=== PATIENT | female | born 1985 | race American Indian/Alaskan Native ===

== ENCOUNTER 2017-08-09 11:35 | Emergency (ER) | payer SELFPAY ==
[2017-08-09] MEDS ORDERED: BSS ONE (13:42)
[2017-08-09] MEDS ORDERED: FUL-GLO OP ONE ×2 (13:42→14:05)
[2017-08-09] MEDS ORDERED: TETRACAINE 0.5% ONE ×2 (13:42→13:58)
[2017-08-09] MEDS ORDERED: NACL 0.9% 1000 ML 1,000 ML IV ONE (15:07)
[2017-08-09] MEDS ORDERED: MORPHINE IV ONE (15:07)
[2017-08-09 15:59] VITALS: BP 124/85
--- NOTE | 2017-08-09 18:26 | Emergency Department Report ---
Entered by KETAN LIANG, acting as scribe for ROMA SHEPARD NP. <ANNA CUETO. - Last Filed: 08/09/17 14:26> ED Eye Problem HPI - General Chief complaint: Eye Problems Stated complaint: R EYE PAIN Time Seen by Provider: 08/09/17 13:46 - Related Data Home Medications Medication Instructions Recorded Confirmed Last Taken Hydrochlorothiazide [HCTZ] 12.5 mg PO DAILY 08/09/17 08/09/17 Unknown Venlafaxine HCl 150 mg PO DAILY 08/09/17 08/09/17 Unknown Allergies Allergy/AdvReac Type Severity Reaction Status Date / Time No Known Allergies Allergy Unverified 08/09/17 11:43 ED Review of Systems ROS: Stated complaint: R EYE PAIN Other details as noted in HPI ED Past Medical Hx - Medications Home Medications: Home Medications Medication Instructions Recorded Confirmed Last Taken Type Hydrochlorothiazide [HCTZ] 12.5 mg PO DAILY 08/09/17 08/09/17 Unknown History Venlafaxine HCl 150 mg PO DAILY 08/09/17 08/09/17 Unknown History ED Course Vital Signs 08/09/17 08/09/17 08/09/17 11:43 14:35 15:30 Temperature 98.8 F Pulse Rate 87 Respiratory 16 18 18 Rate Blood Pressure 141/93 O2 Sat by Pulse 100 100 Oximetry ED Medical Decision Making - Medical Decision Making I have seen and examined this patient myself. I agree with the PA or HORTICULTURAL WORKER plan as discussed. 31 year-old female here with complaint of right eye pain. She's had remitted pain in the right eye for over 3 months. She was admitted hospital approximately 3 months ago for this. She's been off and on several rounds of antibiotics without resolution of her symptoms. On clinical exam she has scleral injection elevated intraocular pressures and significant pain, photophobia on clinical exam. She has significant headaches. During these intermittent symptoms my concern is for the possibility of a glaucoma-like process. Plan discussed patient with on-call ophthalmology at either [facility] or [place] and likely transfer patient for emergent ophthalmology evaluation. Larry Cueto Critical care attestation.: If time is entered above; I have spent that time in minutes in the direct care of this critically ill patient, excluding procedure time. ED Disposition Clinical Impression: Left eye pain Disposition: [id number]/TX-70 ANOTHER TYPE HLTHCARE Condition: Stable Instructions: Eye Pain (ED) Referrals: PRIMARY CARE, [Primary Care Provider] - 3-5 Days <ROMA SHEPARD - Last Filed: 08/09/17 15:57> ED Eye Problem HPI - General Source: patient Mode of arrival: Ambulatory Limitations: No Limitations - History of Present Illness Initial comments: This is a 31 y/o female, nontoxic, well nourished in appearance, no acute signs of distress presents with right eye pain. Associated symptoms include discharge and photophobia but denies headache, fever, chills, nausea and vomiting. Pain is described as 10/10 on a severity scale. Patient states she was seen at an ED in [place] 6 days ago and was diagnosed with corneal abrasion. She was given Percocet and told to follow up but she had to evacuate. Patient also stated has no vision to the right eye. Patient stated has been diagnosed with mutiple rounds of antibiotics and CT scans in the hospital with no improvement. Patient denies any trauma to the eye. Denies itching or crusting. No alleviating factors but worse with light. NKDA. LMP: 08/01/17. chief complaint: eye pain Onset/Timin -: days(s) Onset Description: sudden Location: right eye Place: home Eye Symptoms: pain, discharge, photophobia Severity: severe Severity scale (0 -10): 10 If Pain, Quality: throbbing Consistency: constant Associated Symptoms: other (discharge, photophobia). denies: headache, neck pain, nausea/vomiting, cough, rhinorrhea, fever (chills), shortness of breath Treatments Prior to Arrival: none ED Review of Systems Comment: All other systems reviewed and negative Constitutional: denies: chills, fever Eyes: eye pain, eye discharge, other (photophobia) ENT: denies: ear pain, throat pain Respiratory: denies: cough, shortness of breath, wheezing Cardiovascular: denies: chest pain, palpitations Endocrine: no symptoms reported Gastrointestinal: denies: nausea, vomiting Genitourinary: denies: urgency, dysuria, discharge Musculoskeletal: denies: back pain, joint swelling, arthralgia Skin: denies: rash, lesions Neurological: denies: headache Psychiatric: denies: anxiety, depression Hematological/Lymphatic: denies: easy bleeding, easy bruising ED Past Medical Hx - Past Medical History Hx Hypertension: Yes Hx Psychiatric Treatment: Yes (BiPolar/Schizophrenia) - Surgical History Past Surgical History?: No - Social History Smoking Status: Never Smoker Substance Use Type: None ED Physical Exam - General Limitations: No Limitations General appearance: alert, in no apparent distress - Head Head exam: Present: atraumatic, normocephalic, normal inspection - Eye Eye exam: Present: normal appearance, PERRL, EOMI. Absent: scleral icterus, conjunctival injection, nystagmus, periorbital swelling, periorbital tenderness Pupils: Present: normal accommodation - Expanded Eye Exam Expanded Eyelids: Normal Inspection: Right Pupils: Regular, Round: Bilateral, Reactive: Bilateral Sclera/Conjunctival: Normal Inspection: Left, Injection: Right, Hemorrhage: Right Visual acuity (R) = 20/: 0 (unable to see ) Visual acuity (L) = 20/: 25 With correction: No IOP (R) in mmH IOP (L) in mmH IOP measured with: Tonopen - ENT ENT exam: Present: normal exam, normal orophraynx, mucous membranes moist, TM's normal bilaterally, normal external ear exam - Neck Neck exam: Present: normal inspection, full ROM. Absent: tenderness, meningismus, lymphadenopathy, thyromegaly - Respiratory Respiratory exam: Present: normal lung sounds bilaterally. Absent: respiratory distress, wheezes, rales, rhonchi, stridor, chest wall tenderness, accessory muscle use, decreased breath sounds, prolonged expiratory - Cardiovascular Cardiovascular Exam: Present: regular rate, normal rhythm, normal heart sounds. Absent: bradycardia, tachycardia, irregular rhythm, systolic murmur, diastolic murmur, rubs, gallop - GI/Abdominal GI/Abdominal exam: Present: soft, normal bowel sounds. Absent: distended, tenderness, guarding, rebound, rigid, diminished bowel sounds - Rectal Rectal exam: Present: deferred - Extremities Exam Extremities exam: Present: normal inspection, full ROM, normal capillary refill. Absent: tenderness, pedal edema, joint swelling, calf tenderness - Back Exam Back exam: Present: normal inspection, full ROM. Absent: tenderness, CVA tenderness (R), CVA tenderness (L), muscle spasm, paraspinal tenderness, vertebral tenderness, rash noted - Neurological Exam Neurological exam: Present: alert, oriented X3, CN II-XII intact, normal gait, reflexes normal - Psychiatric Psychiatric exam: Present: normal affect, normal mood - Skin Skin exam: Present: warm, dry, intact, normal color. Absent: rash ED Course - Reevaluation(s) Reevaluation #1: 08/09/17 14:50 Patient is speaking in full sentences with no signs of distress noted. - Consultations Consultation #1: 08/09/17 14:50 Dr. Cueto was consulted about patient history and physcial exam. Examined patient and agrees for transport to r/o glaucoma. Consultation #2: 08/09/17 15:55 Dr. Llamas ophthalmology from [facility] has been consulted about patient history, physical exam and accepted the patient is services. Was instructed to have the patient go to the emergency room with his acceptance. ED Medical Decision Making - Medical Decision Making This is a 31-year-old female that was examined by myself and Dr. Cueto. Upon examination there is a possibility of a glaucoma-like process. Patient was consulted with Dr. Llamas from [facility] that except the patient services. Patient is transported and is stable upon transportation. Patient speaking in full sentences at the time of discharge with no signs of any distress noted. Patient was notified of the physical exam and the transport and agrees to plan of care. ED Disposition Is pt being admited?: No Does the pt Need Aspirin: No This documentation as recorded by the AZUL valentine ELIZABETH,accurately reflects the service I personally performed and the decisions made by me,ROMA SHEPARD, SEBASTIAN.
== END 2017-08-09 16:11 | disposition other institution (70) ==
LOC: ED 11:35
DX: H57.11 Ocular pain, right eye (principal); I10 Essential (primary) hypertension; F31.9 Bipolar disorder, unspecified; F20.9 Schizophrenia, unspecified
CPT/HCPCS: 96361; 96374; 99284; J2270; J7030

== ENCOUNTER 2017-10-22 05:43 | Emergency (ER) | payer MEDICAID ==
[2017-10-22] MEDS ORDERED: SUBLIMAZE IV ONE ×2 (06:41→10:46)
--- NOTE | 2017-10-22 06:48 | Emergency Department Report ---
ED General Adult HPI - General Chief complaint: Syncope Stated complaint: ANKLE PAIN Time Seen by Provider: 10/22/17 06:26 Source: patient, EMS (ems notes not available at time of chart dictation) Mode of arrival: Ambulatory Limitations: Physical Limitation - History of Present Illness Initial comments: This is a 32-year-old female who was previously unknown to this provider. Patient lives in [place]. Patient reports a history of bipolar and schizophrenia. The patient is brought to the hospital by EMS for syncope and subsequent left ankle pain. Patient reports that approximately 90 minutes prior to arrival, she got up from urination, felt dizzy, and then "fell out." Prior to passing out, the patient denies sudden thunderclap headache, neck pain , chest pain. Patient states she feels like she is back to her baseline now, with the exception of ankle pain on the left-hand side. The ankle pain is sharp. It increases with palpation and range of motion. It decreases with rest. Patient denies and delivery within the past 2 months, denies recent road trip to greater than 4 hours within the past month, and denies chest pain and shortness of breath. She also denies midline neck pain. She denies homicidality and suicidality. She denies hallucinations. -: Sudden Location: left, lower extremity Quality: aching Consistency: intermittent Improves with: rest Worsens with: movement Associated Symptoms: syncope. denies: chest pain, cough, loss of appetite, malaise, nausea/vomiting, shortness of breath - Related Data Home Medications Medication Instructions Recorded Confirmed Last Taken Hydrochlorothiazide [HCTZ] 12.5 mg PO DAILY 08/09/17 08/09/17 Unknown Venlafaxine HCl 150 mg PO DAILY 08/09/17 08/09/17 Unknown Previous Rx's Medication Instructions Recorded Last Taken Type Acetaminophen [Tylenol Arthritis] 650 mg PO Q6HR PRN #30 tablet.er 10/22/17 Unknown Rx Ibuprofen [Motrin] 600 mg PO Q8H PRN #30 tablet 10/22/17 Unknown Rx oxyCODONE [Roxicodone] 5 mg PO Q6HR PRN #15 tablet 10/22/17 Unknown Rx Allergies Allergy/AdvReac Type Severity Reaction Status Date / Time No Known Allergies Allergy Unverified 08/09/17 11:43 ED Review of Systems ROS: Stated complaint: ANKLE PAIN Other details as noted in HPI Constitutional: denies: fever Eyes: denies: eye discharge ENT: denies: epistaxis Respiratory: denies: cough Cardiovascular: syncope. denies: chest pain Gastrointestinal: denies: abdominal pain Genitourinary: as per HPI Musculoskeletal: arthralgia, myalgia Neurological: denies: numbness, paresthesias ED Past Medical Hx - Past Medical History Previous Medical History?: Yes Hx Hypertension: Yes Hx Psychiatric Treatment: Yes (BiPolar/Schizophrenia) - Surgical History Past Surgical History?: No - Social History Smoking Status: Never Smoker - Medications Home Medications: Home Medications Medication Instructions Recorded Confirmed Last Taken Type Hydrochlorothiazide [HCTZ] 12.5 mg PO DAILY 08/09/17 08/09/17 Unknown History Venlafaxine HCl 150 mg PO DAILY 08/09/17 08/09/17 Unknown History Acetaminophen [Tylenol Arthritis] 650 mg PO Q6HR PRN #30 tablet.er 10/22/17 Unknown Rx Ibuprofen [Motrin] 600 mg PO Q8H PRN #30 tablet 10/22/17 Unknown Rx oxyCODONE [Roxicodone] 5 mg PO Q6HR PRN #15 tablet 10/22/17 Unknown Rx ED Physical Exam - General Limitations: Physical Limitation General appearance: alert, in no apparent distress - Head Head exam: Present: atraumatic, normocephalic - Eye Eye exam: Present: normal appearance, PERRL, EOMI, other (visual acuity intact to finger counting, color perception, reading at a close distance). Absent: nystagmus - ENT ENT exam: Present: normal exam, normal orophraynx, mucous membranes moist, TM's normal bilaterally, normal external ear exam - Neck Neck exam: Present: normal inspection, full ROM. Absent: tenderness, meningismus - Respiratory Respiratory exam: Present: normal lung sounds bilaterally. Absent: respiratory distress, chest wall tenderness - Cardiovascular Cardiovascular Exam: Present: regular rate, normal rhythm, normal heart sounds. Absent: bradycardia, tachycardia, irregular rhythm, systolic murmur, diastolic murmur, rubs, gallop - GI/Abdominal GI/Abdominal exam: Present: soft, normal bowel sounds. Absent: distended, tenderness, guarding, rebound, rigid, pulsatile mass - Extremities Exam Extremities exam: Present: tenderness, other (compartments are soft. 2+ pulses noted in the upper and lower extremities. The left ankle is diffusely tender. It appears to be posteriorly displaced. 2+ pulses noted in the dorsalis pedis distribution in the left lower extremity). Absent: full ROM (there is no pelvic tenderness. The pelvis is stable.), calf tenderness - Back Exam Back exam: Present: normal inspection. Absent: tenderness, CVA tenderness (R), paraspinal tenderness, vertebral tenderness - Neurological Exam Neurological exam: Present: alert, oriented X3, CN II-XII intact, other ( Extraocular movements intact. Tongue midline. No facial droop. Facial sensation intact to light touch in the V1, V2, V3 distribution bilaterally. 5 and 5 strength in 4 extremities.. Sensation is intact to light touch in 4 extremities.). Absent: motor sensory deficit - Psychiatric Psychiatric exam: Present: flat affect. Absent: homicidal ideation, suicidal ideation - Skin Skin exam: Present: warm, dry, intact, normal color. Absent: rash ED Course Vital Signs 10/22/17 10/22/17 10/22/17 06:00 06:16 06:30 Temperature 98.4 F Pulse Rate 82 Respiratory 18 Rate Blood Pressure 113/71 118/71 Blood Pressure [Left] O2 Sat by Pulse 99 100 100 Oximetry 10/22/17 10/22/17 10/22/17 06:46 07:00 10:22 Temperature Pulse Rate 95 H Respiratory 18 Rate Blood Pressure 118/71 118/70 Blood Pressure 138/73 [Left] O2 Sat by Pulse 100 100 100 Oximetry 10/22/17 10/22/17 11:28 11:47 Temperature 98.6 F Pulse Rate 89 Respiratory 18 16 Rate Blood Pressure Blood Pressure 127/63 [Left] O2 Sat by Pulse Oximetry - Reevaluation(s) Reevaluation #1: 10/22/17 06:48 Differential diagnosis, including but not limited to: Intracranial injury, acute coronary syndrome, structural cardiac disease, arrhythmia, vagal event, orthostasis, ankle fracture, contusion, dislocation, electrolyte derangement Assessment and plan: 32-year-old female, no pulmonary embolus or DVT risk factors, low risk by well's criteria, perc negative, with no proceeding sudden or thunderclap headache, with an episode of loss of consciousness that was proceeded by urination and standing up quickly. Alert and oriented 3 at this time, GCS of 15, NIH score of 0, with isolated lower extremity injuries. We will obtain a noncontrast CT scan of the brain, laboratory studies, lower extremity plain films, patient was consented for moderate sedation and closed reduction prior to administration of additional pain medication. Plain films are pending at this time. 10/22/17 14:55 Reevaluation #2: 10/22/17 09:41 Patient has been resting comfortably in the emergency room 4 hours. No additional episodes of syncopal or noted. CT of the brain and cervical spine are negative. X-ray demonstrates medial malleolus, minimally displaced left lateral tibia fracture. There is no evidence of proximal knee fracture, and there is no evidence of ankle dislocation. Patient did have an episode of tachycardia which negates the perc rule, however without shortness of breath, hypoxia, I still find the patient to be low risk by well's criteria, he does not feel like she requires additional risk stratification for pulmonary embolus at this time. The patient will be placed in a Nelson splint. She will be given crutches and she will be made nonweightbearing. She is instructed to not drive a car or operate motor vehicles for the next 6 months. She is instructed to follow up with outpatient orthopedics within the week. She is distally neurovascularly intact at this time. This was a splint to the patient and her , both of whom verbalize understanding. Reevaluation #3: 10/22/17 09:58 EKG #2 un change, awaiting placement of a Nelson splint. 10/22/17 11:11 Reevaluation #4: 10/22/17 11:11 Troponin negative 2. Vital signs remained stable. Patient has been observed in the ER for over 5 hours without episode of syncope. The patient will be discharged at this time. She is placed in a Nelson splint. She is taught to walk with crutches. She will be discharged at this time ED Medical Decision Making - Lab Data Result diagrams: 10/22/17 06:55 10/22/17 06:55 - EKG Data -: EKG Interpreted by Me - EKG Data When compared to previous EKG there are: previous EKG unavailable 10/22/17 06:50 Normal sinus, 89 beats per minute, normal intervals, normal axis, not morphologically consistent with STEMI. There is no prior for comparison. 10/22/17 09:58 EKG #2 was unchanged - Radiology Data Radiology results: pending, report reviewed, image reviewed interpreted by me: X-ray of the knee, lower extremity demonstrate no foot fracture, left medial malleolus fracture, left distal fibula fracture, no evidence of proximal knee fracture, soft tissue swelling. Noncontrast CT scan of the brain and cervical spine are negative Critical care attestation.: If time is entered above; I have spent that time in minutes in the direct care of this critically ill patient, excluding procedure time. ED Disposition Clinical Impression: History of syncope, Closed left ankle fracture Disposition: - TO HOME OR SELFCARE Is pt being admited?: No Does the pt Need Aspirin: No Condition: Stable Instructions: Ankle Fracture (ED) Additional Instructions: Do not drive or operate motor vehicles for the next 6 months, unless cleared by either her primary care doctor or mathematics professor. Follow up with her primary care doctor or mathematics professor within the next 7 days for syncope/loss of consciousness. Take pain medications as directed. If taking oxycodone, do not drive, consume alcohol, or make important decisions. This medication is sedating. X-ray of the lower extremity demonstrated fracture of the lateral distal fibula , and medial malleolus. Follow up with an orthopedic surgeon within the next 5 days. Pain typically gets worse before it gets better. Return to the ER right away with new pain, worsened pain, migration of pain, fevers, chills, lethargy, irritability, projectile vomiting, confusion, change in mental status, inability to tolerate liquid feeds. Return to the ER right away with new pain, worsening pain, migration of pain, weakness, numbness. Dr. Ortiz is a local orthopedic surgeon. The [facility] is a local medical clinic. [facility], and [facility] are both local mathematics professor practices. Use the crutches as directed, keep the splint in place, and remain nonweightbearing on the left lower extremity. Prescriptions: Acetaminophen [Tylenol Arthritis] 650 mg PO Q6HR PRN #30 tablet.er PRN Reason: Pain Ibuprofen [Motrin] 600 mg PO Q8H PRN #30 tablet PRN Reason: Pain oxyCODONE [Roxicodone] 5 mg PO Q6HR PRN #15 tablet PRN Reason: Pain Referrals: PRIMARY CARE, [Primary Care Provider] - 3-5 Days OTONIEL ORTIZ MD [Staff Physician] - 3-5 Days [facility] [Provider Group] - 3-5 Days [facility] [Provider Group] - 3-[address] [facility] [Provider Group] - 3-5 Days
[2017-10-22 07:15] LABS: Basophils % (Auto) 0.2 % (0.0-1.8); Eosinophils % (Auto) 1.3 % (0.0-4.3); Hemoglobin 8.6 gm/dl (10.1-14.3); Mean Corpuscular HGB Conc 32 % (30-34); Mean Corpuscular Volume 80 fl (79-97); Platelet Count 346 K/mm3 (140-440); Red Blood Count 3.38 M/mm3 (3.65-5.03); Red Cell Distribution Width 17.5 % (13.2-15.2)
[2017-10-22 07:20] LABS: Mean Corpuscular Hemoglobin 26 pg (28-32)
[2017-10-22 07:27] LABS: INR 1.13 (0.87-1.13)
[2017-10-22 07:28] LABS: Partial Thromboplastin Time 31.2 Sec. (24.2-36.6)
[2017-10-22 07:33] LABS: Alanine Aminotransferase 13 units/L (7-56); Albumin 3.6 g/dL (3.9-5); Alkaline Phosphatase 100 units/L (35-129); Anion Gap 17 mmol/L; BUN/Creatinine Ratio 14; Blood Urea Nitrogen 11 mg/dL (7-17); Calcium 8.8 mg/dL (8.4-10.2); Carbon Dioxide 25 mmol/L (22-30); Chloride 99.7 mmol/L (98-107); Glucose 104 mg/dL (65-100); Potassium 3.6 mmol/L (3.6-5.0); Sodium 138 mmol/L (137-145); Total Protein 7.3 g/dL (6.3-8.2)
[2017-10-22 07:34] LABS: Magnesium 1.8 mg/dL (1.7-2.3)
[2017-10-22] MEDS ORDERED: KETALAR IV ONE (07:50)
[2017-10-22] MEDS ORDERED: NACL 0.9% 1000 ML 1,000 ML IV ONE (08:25)
--- NOTE | 2017-10-22 08:32 | Cat Scan Report ---
CT CERVICAL SPINE WITHOUT CONTRAST:10/22/17 05:43:00 CLINICAL: Syncope and fall. TECHNIQUE: Volumetric acquisition and 1.25-mm scan reconstructions without contrast. Sagittal and coronal reformats were performed. FINDINGS: Normal vertebral body height, alignment and disk spaces. No fracture or subluxation. Normal soft tissues and airway. No apparent disc protrusions or bulges. IMPRESSION: Normal study.
--- NOTE | 2017-10-22 08:34 | Cat Scan Report ---
CT HEAD WITHOUT CONTRAST: 10/22/17 8:11 CLINICAL: Syncope and fall. TECHNIQUE: 2.5-mm noncontrast scans. COMPARISON:None FINDINGS: The ventricles and sulci are normal for age. No abnormal density. No mass or mass effect. No hemorrhage, edema or extra-axial collection. The sinuses are clear. Normal orbits and soft tissues. The calvarium and skull base are intact. IMPRESSION: Normal study.
[2017-10-22] MEDS ORDERED: TORADOL ONE (09:59)
--- NOTE | 2017-10-22 10:40 | XRay Report ---
XRAY LEFT ANKLE 2 VIEWS: 10/22/17 05:43:00 CLINICAL: Pain. FINDINGS: A transverse displaced fracture of the medial malleolus and a mildly displaced oblique fracture of the distal fibula proximal to the tibiotalar joint. Comminuted fracture of the posterior malleolus on the lateral view. No callus. Moderate soft tissue swelling. IMPRESSION: Acute/subacute traumatic closed displaced trimalleolar fractures.
--- NOTE | 2017-10-22 10:41 | XRay Report ---
X-RAY LEFT FOOT 2 VIEWS: 10/22/17 CLINICAL: Pain. FINDINGS: The bones of the foot are intact. However trimalleolar fractures of the ankle as described in the ankle x-ray report. Moderate soft tissue swelling at the ankle. The soft tissues of the foot are normal. IMPRESSION: Normal foot. However, acute/subacute displaced closed traumatic trimalleolar fractures.
[2017-10-22] MEDS ORDERED: TORADOL IV ONE (11:10)
--- NOTE | 2017-10-22 11:31 | XRay Report ---
LEFT TIBIA AND FIBULA TWO VIEWS: 10/22/17 05:43:00 CLINICAL: Pain. FINDINGS: A transverse displaced fracture of the medial malleolus at the ankle and an oblique minimally displaced fracture of the distal fibula. Comminuted displaced fracture of the posterior malleolus. No callus. No other fractures. Soft tissue swelling at the ankle. The knee joint spaces are normal. No soft tissue air or foreign body. IMPRESSION: Acute/subacute traumatic closed trimalleolar fractures.
[2017-10-22 11:48] VITALS: BP 127/63
== END 2017-10-22 11:30 | disposition home or self-care (01) ==
LOC: ED 05:43
DX: S82.52XA Displaced fracture of medial malleolus of left tibia, initial encounter for closed fracture (principal); X58.XXXA Exposure to other specified factors, initial encounter; Y93.89 Activity, other specified; Y92.89 Other specified places as the place of occurrence of the external cause; Y99.8 Other external cause status
CPT/HCPCS: 29515; 36415; 70450; 72125; 73590; 73600; 73620; 80053; 82550; 83735; 84443; 84484; 84703; 85025; 85610; 85730; 93005; 93010; 96361; 96374; 96375; 99285; J1885; J3010; J7030

== ENCOUNTER 2017-10-26 17:31 | Emergency (ER) | payer MEDICAID ==
[2017-10-26 17:44] VITALS: BP 136/78
[2017-10-27] MEDS ORDERED: PERCOCET 5/325 PO ONE (00:43)
--- NOTE | 2017-10-27 00:44 | Emergency Department Report ---
ED Lower Extremity HPI - General Chief Complaint: Pain General Stated Complaint: LEFT LEG/ANKLE PAIN Time Seen by Provider: 10/27/17 00:10 Source: patient Mode of arrival: Ambulatory Limitations: No Limitations - History of Present Illness Initial Comments: 32-year-old female past medical history bipolar disorder, left trimalleolar fracture, hypertension presents with complaint of persistent pain in the left ankle for the last 5 days. Patient states that she experienced a fracture of her left ankle and was evaluated at [facility] for this issue and discharged with pain medicine. States she only has a few tablets of oxycodone left and that Motrin is not helping her pain. States she plans to follow up with orthopedics this week. Denies any other complaints. MD Complaint: ankle injury Onset/Timin -: days(s) Injury: Ankle: Left Place: home Severity scale (0 -10): 7 Worsens With: weight bearing Context: other (syncope / fall) Associated Symptoms: swelling, unable to bear weight - Related Data Home Medications Medication Instructions Recorded Confirmed Last Taken Hydrochlorothiazide [HCTZ] 12.5 mg PO DAILY 08/09/17 08/09/17 Unknown Venlafaxine HCl 150 mg PO DAILY 08/09/17 08/09/17 Unknown Previous Rx's Medication Instructions Recorded Last Taken Type Acetaminophen [Tylenol Arthritis] 650 mg PO Q6HR PRN #30 tablet.er 10/22/17 Unknown Rx Ibuprofen [Motrin] 600 mg PO Q8H PRN #30 tablet 10/22/17 Unknown Rx oxyCODONE [Roxicodone] 5 mg PO Q6HR PRN #15 tablet 10/22/17 Unknown Rx HYDROcodone/APAP 5-325 [[place] 1 each PO Q6HR PRN #14 tablet 10/27/17 Unknown Rx 5/325] Allergies Allergy/AdvReac Type Severity Reaction Status Date / Time No Known Allergies Allergy Unverified 08/09/17 11:43 ED Review of Systems ROS: Stated complaint: LEFT LEG/ANKLE PAIN Other details as noted in HPI Constitutional: denies: chills, fever Eyes: denies: eye pain, eye discharge, vision change ENT: denies: ear pain, throat pain Respiratory: denies: cough, shortness of breath, wheezing Cardiovascular: denies: chest pain, palpitations Endocrine: no symptoms reported Gastrointestinal: denies: abdominal pain, nausea, diarrhea Genitourinary: denies: urgency, dysuria, discharge Musculoskeletal: as per HPI (left ankle pain 5 days). denies: back pain, joint swelling, arthralgia Skin: denies: rash, lesions Neurological: denies: headache, weakness, paresthesias Psychiatric: denies: anxiety, depression Hematological/Lymphatic: denies: easy bleeding, easy bruising ED Past Medical Hx - Past Medical History Hx Hypertension: Yes Hx Psychiatric Treatment: Yes (BiPolar/Schizophrenia) - Surgical History Past Surgical History?: No - Social History Smoking Status: Never Smoker Substance Use Type: None - Medications Home Medications: Home Medications Medication Instructions Recorded Confirmed Last Taken Type Hydrochlorothiazide [HCTZ] 12.5 mg PO DAILY 08/09/17 08/09/17 Unknown History Venlafaxine HCl 150 mg PO DAILY 08/09/17 08/09/17 Unknown History Acetaminophen [Tylenol Arthritis] 650 mg PO Q6HR PRN #30 tablet.er 10/22/17 Unknown Rx Ibuprofen [Motrin] 600 mg PO Q8H PRN #30 tablet 10/22/17 Unknown Rx oxyCODONE [Roxicodone] 5 mg PO Q6HR PRN #15 tablet 10/22/17 Unknown Rx HYDROcodone/APAP 5-325 [[place] 1 each PO Q6HR PRN #14 tablet 10/27/17 Unknown Rx 5/325] ED Physical Exam - General Limitations: No Limitations General appearance: alert, in no apparent distress - Head Head exam: Present: atraumatic, normocephalic - Eye Eye exam: Present: normal appearance, PERRL, EOMI - ENT ENT exam: Present: mucous membranes moist - Neck Neck exam: Present: normal inspection - Respiratory Respiratory exam: Present: normal lung sounds bilaterally. Absent: respiratory distress - Cardiovascular Cardiovascular Exam: Present: regular rate, normal rhythm. Absent: systolic murmur, diastolic murmur, rubs, gallop - GI/Abdominal GI/Abdominal exam: Present: soft, normal bowel sounds - Extremities Exam Extremities exam: Present: normal inspection - Expanded Lower Extremity Exam Left Hip exam: Present: normal inspection, full ROM Upper Leg exam: Present: normal inspection, full ROM Knee exam: Present: normal inspection, full ROM Lower Leg exam: Present: normal inspection Ankle exam: Present: normal inspection (patient's left ankle covered in large sugar tong immobilization splint) Foot/Toe exam: Present: normal inspection (distal capillary refill all toes less than 1 second), full ROM Neuro vascular tendon exam: Present: no vascular compromise (distal capillary refill all toes less than 1 second) Gait: Positive: antalgic (patient using crutches to ambulate) - Back Exam Back exam: Present: normal inspection - Neurological Exam Neurological exam: Present: alert, oriented X3, CN II-XII intact, normal gait - Psychiatric Psychiatric exam: Present: normal affect, normal mood - Skin Skin exam: Present: warm, dry, intact, normal color. Absent: rash ED Course Vital Signs 10/26/17 17:39 Temperature 98.2 F Pulse Rate 100 H Respiratory 16 Rate Blood Pressure 136/78 O2 Sat by Pulse 99 Oximetry ED Lower Extremity MDM - Medical Decision Making A/P: Left trimalleolar fracture 1-Daniel wraps taken off of splint to assess skin on foot good dorsalis pedis pulse and good distal capillary refill left foot good sensation on toes 2-case discussed with Dr. Martin before discharge 3-refill on narcotics for pain area and I advised patient that she must follow- up with orthopedics and pain management as repeated narcotic prescriptions can be dangerous if she becomes addicted or if she abuses the medicine. Patient acknowledged this 4- follow-up with orthopedics patient given multiple referrals. I stressed the importance of follow-up to the patient in front of patient's spouse with Mr. Corona community relations manager at bedside. Critical care attestation.: If time is entered above; I have spent that time in minutes in the direct care of this critically ill patient, excluding procedure time. ED Disposition Clinical Impression: Closed left ankle fracture Qualifiers: Encounter type: initial encounter Qualified Code(s): S82.892A - Other fracture of left lower leg, initial encounter for closed fracture Disposition: TO HOME OR SELFCARE Is pt being admited?: No Does the pt Need Aspirin: No Condition: Stable Instructions: Ankle Fracture (ED) Prescriptions: HYDROcodone/APAP 5-325 [[place] 5/325] 1 each PO Q6HR PRN #14 tablet PRN Reason: Pain Referrals: [facility] [Provider Group] - 3-5 Days OTONIEL NEGRETE MD [Staff Physician] - 3-5 Days Forms: Accompanied Note Time of Disposition: 00:46
== END 2017-10-27 01:33 | disposition home or self-care (01) ==
LOC: ED 17:31
DX: M25.572 Pain in left ankle and joints of left foot (principal); S82.892D Other fracture of left lower leg, subsequent encounter for closed fracture with routine healing; I10 Essential (primary) hypertension; F31.9 Bipolar disorder, unspecified; X58.XXXD Exposure to other specified factors, subsequent encounter
CPT/HCPCS: 99282

== ENCOUNTER 2017-10-28 16:23 | Emergency (ER) | payer MEDICAID, OTHER ==
[2017-10-28 16:57] VITALS: BP 137/85
--- NOTE | 2017-10-28 19:14 | Emergency Department Report ---
ED Extremity Problem HPI - General Chief complaint: Extremity Injury, Lower Stated complaint: LEFT LEG PAIN Time Seen by Provider: 10/28/17 18:36 Source: patient, family Mode of arrival: Wheelchair Limitations: Physical Limitation (crutches due to ankle fracture) - History of Present Illness Initial comments: Pt here with family member reports that she is in pain and she was initially treated here on 10/22 17 for syncopal episode and left ankle pain and was found to have a trimalleolar fracture left ankle. Patient was treated and referred to orthopedic doctor. She returned on 10/27/2017 and was treated for pain because she says she went orthopedic doctor who is Dr. Ortiz and because she has [id number] insurance they said it will take 1 week to get her Medicaid to activate in [place]. She says she is visiting from [place]. She said her insurance only cover emergency visit and was told that if she continues to have pain to return to the emergency room. He went to Dr. Ortiz's office and insurance was treated in [place] and she is in a lot of pain. Patient was given oxycodone 5 mg every 6 hours #15 tablets on 10/22 2017 and on 10/27/2017 she was given [place] 5/325 mg 1 tablet every 6 hours #14 tablets. Patient is back today and says she took all the tablets because her ankle is hurting and [place] is not helping her pain. She says she had to take them more frequently. Denies any nausea or vomiting. Denies any numbness or tingling. MD Complaint: extremity pain, joint paint, other (fracture) Onset/Timin -: days(s) Location: left, lower extremity History of Same: Yes -: No myalgia, Yes arthralgia, No fever, No associated dyspnea, No associated chest pain Radiation: none Severity scale (0 -10): 8 Quality: stabbing, aching, constant Consistency: constant Improves with: immobilization, rest Worsens with: weight bearing, exertion, palpation Associated Symptoms: arthralgias. denies: chest pain, shortness of breath, fever, myalgias, rash - Related Data Home Medications Medication Instructions Recorded Confirmed Last Taken Hydrochlorothiazide [HCTZ] 12.5 mg PO DAILY 08/09/17 08/09/17 Unknown Venlafaxine HCl 150 mg PO DAILY 08/09/17 08/09/17 Unknown Previous Rx's Medication Instructions Recorded Last Taken Type Acetaminophen [Tylenol Arthritis] 650 mg PO Q6HR PRN #30 tablet.er 10/22/17 Unknown Rx Ibuprofen [Motrin] 600 mg PO Q8H PRN #30 tablet 10/22/17 Unknown Rx oxyCODONE [Roxicodone] 5 mg PO Q6HR PRN #15 tablet 10/22/17 Unknown Rx HYDROcodone/APAP 5-325 [[place] 1 each PO Q6HR PRN #14 tablet 10/27/17 Unknown Rx 5/325] Allergies Allergy/AdvReac Type Severity Reaction Status Date / Time No Known Allergies Allergy Unverified 08/09/17 11:43 ED Review of Systems ROS: Stated complaint: LEFT LEG PAIN Other details as noted in HPI Comment: All other systems reviewed and negative Constitutional: no symptoms reported Respiratory: no symptoms reported Cardiovascular: denies: chest pain, palpitations, dyspnea on exertion, orthopnea , edema, syncope, paroxysmal nocturnal dyspnea Gastrointestinal: denies: abdominal pain, nausea, vomiting Musculoskeletal: arthralgia, other (patient with crutches and left lower extremity splint.). denies: back pain Skin: denies: rash Neurological: abnormal gait (due to fracture left ankle, no weightbearing status ). denies: headache, numbness, paresthesias ED Past Medical Hx - Past Medical History Previous Medical History?: Yes Hx Hypertension: Yes Hx Psychiatric Treatment: Yes (BiPolar/Schizophrenia) Additional medical history: Fractured left ankle - Surgical History Past Surgical History?: No - Family History Family history: no significant - Social History Smoking Status: Never Smoker Substance Use Type: None - Medications Home Medications: Home Medications Medication Instructions Recorded Confirmed Last Taken Type Hydrochlorothiazide [HCTZ] 12.5 mg PO DAILY 08/09/17 08/09/17 Unknown History Venlafaxine HCl 150 mg PO DAILY 08/09/17 08/09/17 Unknown History Acetaminophen [Tylenol Arthritis] 650 mg PO Q6HR PRN #30 tablet.er 10/22/17 Unknown Rx Ibuprofen [Motrin] 600 mg PO Q8H PRN #30 tablet 10/22/17 Unknown Rx oxyCODONE [Roxicodone] 5 mg PO Q6HR PRN #15 tablet 10/22/17 Unknown Rx HYDROcodone/APAP 5-325 [[place] 1 each PO Q6HR PRN #14 tablet 10/27/17 Unknown Rx 5/325] ED Physical Exam - General Limitations: No Limitations General appearance: alert, in no apparent distress - Head Head exam: Present: atraumatic, normocephalic, normal inspection - Eye Eye exam: Present: normal appearance, PERRL, EOMI Pupils: Present: normal accommodation - ENT ENT exam: Present: normal exam, normal orophraynx, mucous membranes moist, TM's normal bilaterally, normal external ear exam - Neck Neck exam: Present: normal inspection, full ROM, other (No C-spine tenderness). Absent: tenderness, lymphadenopathy - Respiratory Respiratory exam: Present: normal lung sounds bilaterally, respiratory distress. Absent: chest wall tenderness, decreased breath sounds - Cardiovascular Cardiovascular Exam: Present: normal rhythm, tachycardia, normal heart sounds. Absent: systolic murmur, diastolic murmur - GI/Abdominal GI/Abdominal exam: Present: soft, normal bowel sounds. Absent: distended, tenderness, guarding, rebound, rigid - Extremities Exam Extremities exam: Present: normal capillary refill, other (posterior splint to left ankle. good color, movement, sensation, temperature to toes of left lower extremity. Splint in place and fitted correctly). Absent: normal inspection, full ROM (Limited range of motion to left lower ankle and foot due to trimalleolar fracture), pedal edema, calf tenderness - Back Exam Back exam: Present: normal inspection, full ROM. Absent: tenderness - Neurological Exam Neurological exam: Present: alert, oriented X3, abnormal gait (patient with abnormal gait due to trimalleolar fracture left lower extremity. She is ambulating with crutches.). Absent: motor sensory deficit (decrease in motor function to left ankle and foot due to fracture of ankle. Strength is 3/5. She can dorsiflex and plantar flex her feet but she says left foot with pain on active range of motion.) - Psychiatric Psychiatric exam: Present: normal affect, normal mood - Skin Skin exam: Present: warm, dry, intact, normal color. Absent: rash ED Course Vital Signs 10/28/17 10/28/17 16:53 19:14 Temperature 98.3 F Pulse Rate 106 H 82 Respiratory 16 Rate Blood Pressure 137/85 O2 Sat by Pulse 100 Oximetry - Reevaluation(s) Reevaluation #1: 10/28/17 21:22 She given Dilaudid 1 mg IM, Zofran 8 mg ODT and Toradol 30 mg IM. Pain down to 3 out of 10. ED Medical Decision Making - Medical Decision Making D course: Patient and fractured her left ankle on 10/22 2017 with x-ray report showing acute/subacute traumatic closed displaced trimalleolar fracture. Patient has splint on and she was given oxycodone 5 mg every 6 hours when necessary #15 tablets. She came back on 10/27/2017 for complaints of pain and was given [place] 5/325 mg 1 tablet every 6 hours when necessary #14 and patient is back today with same complaints saying that her insurance in [place] been activated as yet and is currently take a week and she is in a lot of pain. Patient took a total of 14 [place] 5/325 mg over 24 hours. She said that she was hurting and the [place] was not helping so she had to take a higher dose. She is requesting to have initial pain medication that she got when she was first injured. I discussed this case with Dr. Fernandez and patient cannot get any more narcotics. I discussed patient that I cannot give her any more narcotics as she got ample amount over 6 days. I discussed patient that I'll refer her back to Dr. Ortiz and also to research and orthopedic and also she can go to a pain management clinic while waiting to get her insurance stabilized. I referred her to the [facility]. Patient discharged home with her family member in stable condition with prescription for Motrin. Splint was in place and neurovascular checked and is intact. She was given Dilaudid 1 mg I am, Toradol 30 mg IM and Zofran 8 mg ODT in emergency room which helped her pain. Critical care attestation.: If time is entered above; I have spent that time in minutes in the direct care of this critically ill patient, excluding procedure time. ED Disposition Clinical Impression: Left ankle pain Qualifiers: Chronicity: acute Qualified Code(s): M25.572 - Pain in left ankle and joints of left foot Trimalleolar fracture of left ankle Qualifiers: Encounter type: sequela Fracture type: closed Qualified Code(s): S82.852S - Displaced trimalleolar fracture of left lower leg, sequela Disposition: DC-01 TO HOME OR SELFCARE Is pt being admited?: No Does the pt Need Aspirin: No Condition: Stable Instructions: Arthralgia (ED), Ankle Fracture (ED), Splint Care (ED) Additional Instructions: Take Motrin as prescribed Followup [facility] and/or Dr. Ortiz as previously instructed [employer] bear to left lower extremity as previously instructed See information given on [facility]. Referrals: [facility] [Provider Group] - 10/29/17 OTONIEL ORTIZ MD [Staff Physician] - 10/29/17 [facility] [Other] - 10/29/17 ([facility]) Forms: Work/School Release Form(ED)
[2017-10-28] MEDS ORDERED: TORADOL IM ONE (19:16)
[2017-10-28] MEDS ORDERED: DILAUDID IM ONE (19:16)
[2017-10-28] MEDS ORDERED: ZOFRAN ODT PO ONE (19:18)
== END 2017-10-28 21:52 | disposition home or self-care (01) ==
LOC: ED 16:23
DX: S82.852S Displaced trimalleolar fracture of left lower leg, sequela (principal); M25.572 Pain in left ankle and joints of left foot; I10 Essential (primary) hypertension; X58.XXXS Exposure to other specified factors, sequela
CPT/HCPCS: 96372; 99282; J1170; J1885; Q0162